=== PATIENT | male | born 1970 | race Caucasian/White ===

== ENCOUNTER 2025-05-03 15:06 | Emergency (ER) | payer BC | END 2025-05-03 15:53 | disposition home or self-care (01) | LOC: DL.ED 15:06 | DX: S69.91XA Unspecified injury of right wrist, hand and finger(s), initial encounter (principal); W01.198A Fall on same level from slipping, tripping and stumbling with subsequent striking against other object, initial encounter | CPT/HCPCS: 73140-F5; 99283 ==